=== PATIENT | female | born 1965 | race Caucasian/White ===

== ENCOUNTER → 2018-01-08 | Outpatient (CLI) | payer BC ==
[2013-12-25 18:45] VITALS: BP 129/65
--- NOTE | 2018-01-08 13:07 | RAD ---
DATE: 01/08/2018 EXAM: DIGITAL SCREEN BILAT W/CAD HISTORY: Routine screening COMPARISON: 05/23/2016 This study was interpreted with the benefit of Computerized Aided Detection (CAD). The breast parenchyma shows scattered fibroglandular densities. Breast parenchyma level B. FINDINGS: No new or enlarging breast densities are seen. Benign type calcification is present. No suspicious microcalcifications have developed. Benign-appearing lymph nodes are present in the axillary regions. IMPRESSION: Stable mammograms without evidence of malignancy. BI-RADS CATEGORY: 2 BENIGN FINDING(S) RECOMMENDED FOLLOW-UP: 12M 12 MONTH FOLLOW-UP PQRS compliance statement: Patient information was entered into a reminder system with a target due date for the next mammogram. Mammography is a sensitive method for finding small breast cancers, but it does not detect them all and is not a substitute for careful clinical examination. A negative mammogram does not negate a clinically suspicious finding and should not result in delay in biopsying a clinically suspicious abnormality. "Our facility is accredited by the [employer] Mammography Program."
== END | disposition home or self-care (01) ==
LOC: MAMMO 08:05
PROVIDERS: ATTEND Physician Assistant Surgical
DX: Z12.31 Encounter for screening mammogram for malignant neoplasm of breast (principal); E78.00 Pure hypercholesterolemia, unspecified
CPT/HCPCS: 77067

== ENCOUNTER → 2019-01-13 | Outpatient (CLI) | payer BC ==
[2013-12-25 18:45] VITALS: BP 129/65
--- NOTE | 2019-01-13 10:25 | CARD ---
MR#: [id number] Date of Study: 01/13/2019 Ordering Physician: NAVA VALENTINE, Referring Physician: NAVA VALENTINE, Tech: Modesta Kingflorian APPROVED REPORT EXAM: Two-dimensional and M-mode echocardiogram with Doppler and color Doppler. Other Information Quality : AverageHR: 52bpm Technically limited study due to body habitus. INDICATION Edema RISK FACTORS Hyperlipidemia Diabetes Previous smoking 2D DIMENSIONS RVDd3.3 (2.9-3.5cm)Left Atrium(2D)3.4 (1.6-4.0cm) IVSd1.0 (0.7-1.1cm)Aortic Root(2D)2.6 (2.0-3.7cm) LVDd4.7 (3.9-5.9cm)LVOT Diameter2.0 (1.8-2.4cm) PWd0.9 (0.7-1.1cm)LVDs3.2 (2.5-4.0cm) FS (%) 31.2 %SV59.0 ml LVEF(%)59.0 (>50%) M-Mode DIMENSIONS LVDd4.73 (4.0-5.6cm)FS (%) 46 % LVDs2.57 (2.0-3.8cm)LVEF(%)77 (>50%) Aortic Valve AoV Peak Rei.163.2cm/sAoV VTI37.2cm AO Peak GR.10.6mmHgLVOT Peak Rei.105.0cm/s LVOT VTI 28.44cmAO Mean GR.5mmHg MARK (VMAX)1.30nf5RIO (VTI)2.48cm2 Mitral Valve MV E Ftjsgvws815.5cm/sMV DECEL [id number] MV A Zylkpuso14.2cm/sMV LDV59bh E/A Ratio1.2MVA (PHT)3.98cm2 TDI E/Lateral E'10.9E/Medial E'13.1 Pulmonary Valve PV Peak Bluvzuej568.2cm/sPV Peak Grad.6mmHg Tricuspid Valve TR P. Kpenubui431ra/sRAP LSLWYTUD5etIr TR Peak Gr.96idNtOMLV37rgXz Pulmonary Vein S1 Olefsfkq96.4cm/sD2 Tekweitz07.3cm/s PVa maubgsyt671pupt LEFT VENTRICLE The left ventricle is normal size. There is borderline concentric left ventricular hypertrophy. The l eft ventricular systolic function is normal and the ejection fraction is within normal range. The Eje ction Fraction is 50-55%. There is normal LV segmental wall motion. The left ventricular diastolic fu nction and filling is normal for age. RIGHT VENTRICLE The right ventricle is normal size. There is normal right ventricular wall thickness. The right ventr icular systolic function is normal. ATRIA The left atrium size is normal. The right atrium size is normal. The interatrial septum is intact wit h no evidence for an atrial septal defect or patent foramen ovale as noted on 2-D or Doppler imaging. AORTIC VALVE The aortic valve is calcified but opens well. Doppler and Color Flow revealed no significant aortic r egurgitation. There is no significant aortic valvular stenosis. MITRAL VALVE The mitral valve is thickened but opens well. There is no evidence of mitral valve prolapse. There is no mitral valve stenosis. Doppler and Color-flow revealed trace mitral regurgitation. TRICUSPID VALVE The tricuspid valve is normal in structure and function. Doppler and Color Flow revealed trace tricus pid regurgitation with an estimated PAP of 31 mmHg. There is no tricuspid valve prolapse or vegetatio n. There is no tricuspid valve stenosis. PULMONIC VALVE The pulmonic valve is not well visualized. Doppler and Color Flow revealed trace pulmonic valvular re gurgitation. There is no pulmonic valvular stenosis. GREAT VESSELS The aortic root is normal in size. The IVC is normal in size and collapses >50% with inspiration. PERICARDIAL EFFUSION There is no evidence of significant pericardial effusion. Critical Notification Critical Value: No <Conclusion> The left ventricular systolic function is normal and the ejection fraction is within normal range. Th e Ejection Fraction is 50-55%. There is normal LV segmental wall motion. Signed by : Momo Ahumada, Electronically Approved : 01/13/2019 10:24:52
--- NOTE | 2019-01-13 10:36 | RAD ---
MR#: [id number] Date of Study: 01/13/2019 Ordering Physician: PUJA APPLE, Referring Physician: PUJA APPLE Tech: Josy Hunt RT R, [facility] T APPROVED REPORT Patient Location : OUT-PATIENT Indications Lower Extremity Edema : Greater Saphenous Veins (GSV) Significant venous relux noted in the RIGHT GSV at the following levels : Superficial Femoral Junctio n, Proximal Thigh, Mid Thigh Significant venous relux noted in the LEFT GSV at the following levels : Superficial Femoral Junction , Proximal Thigh, Mid Thigh Perforators Thigh Perforators Calf Perforators Right: cm up from medial heel 15cm back from the anterior border of tibia diameter 3.0mm. Findings Grayscale images of the right great saphenous vein and left great saphenous vein are grossly unremark able. The right great saphenous vein measures approximately 6 mm and the left great saphenous vein measures approximately 6 mm. There is a reflux on the right great saphenous vein measuring approximately 1.1 seconds in the proximal and midsegment. There is significant reflux in the left great saphenous vein up to 2.4 seconds in the proximal to mid segments. Bilateral lesser saphenous veins do not show any evidence of reflux. There is 1 calf perforators noted approximately 15 cm up from the ankle on the right side measuring 3 mm which does not have any clear evidence of reflux. Critical Notification Critical Value: No <Conclusion> 1. Positive for reflux in the bilateral greater saphenous veins. Signed by : Momo Ahumada, Electronically Approved : 01/13/2019 10:36:09
== END | disposition home or self-care (01) ==
LOC: ECHO 07:44
PROVIDERS: ATTEND Internal Medicine Cardiovascular Disease
DX: I35.1 Nonrheumatic aortic (valve) insufficiency (principal); I51.7 Cardiomegaly; R60.0 Localized edema
CPT/HCPCS: 93306; 93970

== ENCOUNTER → 2019-04-12 | Outpatient (CLI) | payer BC ==
[2013-12-25 18:45] VITALS: BP 129/65
--- NOTE | 2019-04-12 13:58 | KCIC ---
EXAM: Right lower extremity venous Doppler. HISTORY: Right lower extremity pain/swelling. COMPARISON: None. FINDINGS: Grayscale and Doppler analysis of the right lower extremity deep venous system was performed with graded compression and augmentation. The common femoral, greater saphenous, superficial femoral, popliteal and calf veins were assessed. There is no evidence of deep venous thrombosis. A popliteal cyst measures 7.8 x 3.3 x 1.8 cm. IMPRESSION: 1. No evidence of deep venous thrombosis. 2. Moderate popliteal cyst. Electronically signed by: Debora Rome MD (04/12/2019 1:55 PM) [place] [id number]
== END | disposition home or self-care (01) ==
LOC: KCIC US 13:09
PROVIDERS: ATTEND Family Medicine
DX: M71.21 Synovial cyst of popliteal space [Baker], right knee (principal); M79.89 Other specified soft tissue disorders; M79.604 Pain in right leg
CPT/HCPCS: 93971

== ENCOUNTER → 2019-06-15 | Outpatient (CLI) | payer BC ==
[2013-12-25 18:45] VITALS: BP 129/65
--- NOTE | 2019-06-17 06:45 | RAD ---
MR#: [id number] Date of Study: 06/15/2019 Ordering Physician: NAVA VALENTINE, Referring Physician: NAVA VALENTINE, Tech: LENNY Fischer, RDIL, T APPROVED REPORT Bilateral Lower Extremity Venous Study for DVT Patient Location: OUT-PATIENT Indications POST ABLATION Findings The bilateral lower extremity deep veins were evaluated for thrombus with color Doppler, spectral and grayscale images. On the right the grayscale images of the common femoral, superficial femoral and popliteal veins do n ot demonstrate any evidence of thrombus and these veins appear to be compressible. The below-knee vei ns were not well visualized but grossly appear to be compressible. Spectral imaging and color Doppler do not reveal any evidence of obstruction to flow with normal respirophasic variation above the knee . Below the knee there is spontaneous flow noted. On the left, the grayscale images of the common femoral, superficial femoral and popliteal veins do n ot demonstrate any evidence of thrombus and these veins appear to be compressible. The left superfici al femoral vein in the mid to distal segment was not well visualized. The below-knee veins again were not well visualized but grossly appear to be compressible. Spectral imaging and color Doppler do not reveal any evidence of obstruction to flow with normal respirophasic variation above the knee. The b elow-knee veins demonstrate spontaneous flow. The bilateral great saphenous veins are occluded with thrombus consistent with recent ablation. Critical Notification Critical Value: No <Conclusion> 1. No obvious deep vein thrombosis in the bilateral lower extremities. Technically difficult study. 2. Successful bilateral great saphenous vein ablations. Signed by : Momo Ahumada, Electronically Approved : 06/17/2019 06:44:45
== END | disposition home or self-care (01) ==
LOC: US 11:28
PROVIDERS: ATTEND Internal Medicine Cardiovascular Disease
DX: I82.813 Embolism and thrombosis of superficial veins of lower extremities, bilateral (principal)
CPT/HCPCS: 93970

== ENCOUNTER → 2020-05-07 | Outpatient (CLI) | payer BC ==
[2013-12-25 18:45] VITALS: BP 129/65
--- NOTE | 2020-05-09 11:38 | SLEEP ---
DATE OF STUDY: 05/07/2020 HOME SLEEP STUDY The patient is a 54-year-old who weighs 244 pounds with a BMI of 41.9. The patient's [place] score was 4. The patient underwent home sleep study performed at [facility]. Total recording time was 439 minutes. During the night of the study, the patient had 15 obstructive apneas, no central apneas, 22 mixed apneas and 65 hypopneas. The patient's AHI was 16.4 per hour. Nocturnal oximetry study revealed an average oxygen saturation of 93% with the lowest of 78%. 13 minutes were spent with oxygen saturation of less than 90%. Mean heart rate was 64 beats per minute. IMPRESSION: 1. Moderate obstructive sleep apnea at an AHI of 16.4 per hour. 2. Nocturnal hypoxia secondary to obstructive sleep apnea. RECOMMENDATIONS: 1. The patient would benefit from treatment of sleep apnea with CPAP. This can be done as in-lab CPAP titration versus home auto-titration study. 2. Once the patient is optimally treated, then follow up in 4-6 weeks to assess compliance and to document clinical improvement. 3. Weight loss is strongly advised. 4. Avoid T[employer] depressants. 5. Cautioned regarding driving until symptoms of sleep apnea resolve with above recommendation. TRINI PAUL MD DR: CAMILO/comfort JOB#: [id number] / [id number] RONDA Estevez MD
== END ==
LOC: RT 07:55
PROVIDERS: ATTEND Family Medicine
DX: G47.33 Obstructive sleep apnea (adult) (pediatric) (principal); R09.02 Hypoxemia
CPT/HCPCS: G0399

== ENCOUNTER → 2020-06-13 | Outpatient (CLI) | payer BC ==
[2013-12-25 18:45] VITALS: BP 129/65
--- NOTE | 2020-06-14 11:28 | SLEEP ---
DATE OF STUDY: 06/13/2020 SLEEP STUDY ATTENDING PHYSICIAN: Dr. Mirza. The patient 54 years old who weighs 244 pounds with a BMI of 42. The patient had a home sleep study and was found to have moderate ADDISON at an AHI of 16.4 per hour. The patient was referred for in-lab CPAP titration study. This was performed on 06/13/2020. During the night study, the patient spent 426 minutes in bed and slept for 345 minutes with a sleep efficiency of 81%. Sleep latency was 36 minutes with a REM latency of 153 minutes. Sleep architecture showed normal stage 1 sleep, increased stage 2 sleep, normal slow wave and reduced REM sleep. EKG monitoring revealed an average heart rate of 69 beats per minute. No sustained arrhythmias observed. No PLMs observed. The patient was started on CPAP at 5 cm water and titrated up to 9 cm water. At the final pressure, the patient slept for 99 minutes. The patient had supine as well as REM sleep. The patient's AHI was reduced to 2 per hour and oxygen saturation remained above 90%. IMPRESSION: 1. Moderate obstructive sleep apnea diagnosed by home sleep study. 2. No clinically significant periodic limb movements. RECOMMENDATIONS: 1. CPAP at 9 cm water completely eliminated the patient's sleep apnea and should be used on a nightly basis. 2. Follow up in 4-6 weeks to assess compliance with CPAP and to document clinical improvement. 3. Weight loss is advised. 4. Avoid BAKER TEST depressants. 5. Cautioned regarding driving until symptoms of sleep apnea resolve with the use of CPAP. TRINI PAUL MD DR: CAMILO/comfort JOB#: [id number] / [id number] RONDA Estevez MD
== END ==
LOC: SLPLAB 18:59
PROVIDERS: ATTEND Family Medicine
DX: G47.33 Obstructive sleep apnea (adult) (pediatric) (principal)
CPT/HCPCS: 95811

== ENCOUNTER → 2020-07-27 | Outpatient (CLI) | payer BC ==
[2013-12-25 18:45] VITALS: BP 129/65
--- NOTE | 2020-07-27 13:47 | CARD ---
MR#: [id number] Date of Study: 07/27/2020 Ordering Physician: NAVA VALENTINE, Referring Physician: NAVA VALENTINE Tech: Daisy Martins [facility] APPROVED REPORT EXAM: Two-dimensional and M-mode echocardiogram with Doppler and color Doppler. Other Information Quality : AverageHR: 61bpm Rhythm : NSR INDICATION Hypertension/HCVD RISK FACTORS Hypertension Obesity 2D DIMENSIONS RVDd3.9 (2.9-3.5cm)Left Atrium(2D)4.1 (1.6-4.0cm) IVSd1.0 (0.7-1.1cm)Aortic Root(2D)2.5 (2.0-3.7cm) LVDd4.9 (3.9-5.9cm)LVOT Diameter2.1 (1.8-2.4cm) PWd1.1 (0.7-1.1cm)LVDs2.8 (2.5-4.0cm) FS (%) 42.6 %SV84.3 ml LVEF(%)73.5 (>50%) Aortic Valve AoV Peak Rei.188.1cm/sAoV VTI49.3cm AO Peak GR.14.2mmHgLVOT Peak Rei.118.5cm/s AO Mean GR.6mmHgAVA (VMAX)2.12cm2 Mitral Valve MV E Yylfcmvu051.1cm/sMV DECEL GERY979yq MV A Hczoajio338.5cm/sE/A Ratio1.2 Pulmonary Valve PV Peak Ghobplks918.2cm/s Tricuspid Valve TR P. Qnttavsn151cr/sTR Peak Gr.30mmHg Pulmonary Vein S1 Qfwgsgsb52.7cm/sD2 Xawnaejz47.5cm/s PVa xbnaqdgs586pbdz LEFT VENTRICLE The left ventricle is normal size. There is normal left ventricular wall thickness. The left ventricu lar systolic function is normal and the ejection fraction is within normal range. Estimated ejection fraction 60-65%. There is normal LV segmental wall motion. The left ventricular diastolic function an d filling is normal for age. RIGHT VENTRICLE The right ventricle is normal size. There is normal right ventricular wall thickness. The right ventr icular systolic function is normal. ATRIA The left atrium size is normal. The right atrium size is normal. The interatrial septum is intact wit h no evidence for an atrial septal defect or patent foramen ovale as noted on 2-D or Doppler imaging. AORTIC VALVE The aortic valve is normal in structure and function. Doppler and Color Flow revealed no significant aortic regurgitation. There is no significant aortic valvular stenosis. MITRAL VALVE The mitral valve is normal in structure and function. There is no evidence of mitral valve prolapse. There is no mitral valve stenosis. Doppler and Color-flow revealed trace mitral regurgitation. TRICUSPID VALVE The tricuspid valve is normal in structure and function. Doppler and Color Flow revealed mild tricusp id regurgitation. Estimated PAP 40 mmHg. There is no tricuspid valve stenosis. PULMONIC VALVE Doppler and Color Flow revealed no pulmonic valvular regurgitation. There is no pulmonic valvular tu nosis. GREAT VESSELS The aortic root is normal in size. The ascending aorta is normal in size. The IVC is normal in size a nd collapses >50% with inspiration. PERICARDIAL EFFUSION There is no evidence of significant pericardial effusion. Critical Notification Critical Value: No <Conclusion> The left ventricular systolic function is normal and the ejection fraction is within normal range. E stimated ejection fraction 60-65%. There is normal LV segmental wall motion. Signed by : Momo Ahumada, Electronically Approved : 07/27/2020 13:47:30
== END ==
LOC: ECHO 08:43
PROVIDERS: ATTEND Internal Medicine Cardiovascular Disease
DX: I07.1 Rheumatic tricuspid insufficiency (principal); E78.5 Hyperlipidemia, unspecified
CPT/HCPCS: 93306

== ENCOUNTER → 2020-10-11 | Outpatient (CLI) | payer BC ==
[2013-12-25 18:45] VITALS: BP 129/65
--- NOTE | 2020-10-11 09:46 | RAD ---
EXAM: Pelvic sonogram. HISTORY: Postmenopausal bleeding. TECHNIQUE: Sonographic imaging of the pelvis was performed. COMPARISON: None. FINDINGS: The uterus measures 6.2 x 3.5 x 3.2 cm. The endometrial stripe measures 6 mm. The right ova ry is not seen. The left ovary is normal in size and demonstrates normal blood flow. IMPRESSION: 1. Mildly thickened endometrial stripe for the postmenopausal status the patient. 2. Obscured right ovary and unremarkable left ovary. Electronically signed by: Della Davenport MD (10/11/2020 9:43 AM) [id number]
--- NOTE | 2020-10-11 10:03 | RAD ---
EXAM: Bilateral digital screening mammogram with tomosynthesis. HISTORY: 54-year-old female presents for screening mammography. TECHNIQUE: Full-field digital craniocaudal and mediolateral oblique 2D and 3D tomosynthesis images of both breasts are obtained for evaluation. Computer aided detection was applied. COMPARISON: 01/13/2019 BREAST PARENCHYMAL DENSITY: Level B - Scattered fibroglandular densities. FINDINGS: There is no new suspicious mass, microcalcification or region of architectural distortion. There are stable areas of benign asymmetry and nodularity within both breasts. IMPRESSION: BI-RADS Category 2: Benign finding(s). RECOMMENDATION: Annual mammography is recommended. If your mammogram demonstrates that you have dense breast tissue, which could hide abnormalities, and if you have other risk factors for breast cancer that have been identified, you might benefit from s upplemental screening tests that may be suggested by your ordering physician. Dense breast tissue, i n and of itself, is a relatively common condition. This information is not provided to cause undue c oncern, but rather to raise your awareness and to promote discussion with your physician regarding th e presence of other risk factors, in addition to dense breast tissue. A report of your mammography re sults will be sent to you and your physician. You should contact your physician if you have any ques tions or concerns regarding this report. Mammography is a sensitive method for finding small breast cancers, but it does not detect them all a nd is not a substitute for careful clinical examination. A negative mammogram does not negate a clin ically suspicious finding and should not result in delay in biopsying a clinically suspicious abnorma lity. PQRS compliance statement - Patient information was entered into a reminder system with a target due date for the next mammogram. "Our facility is accredited by the [employer] Mammography Program." Electronically signed by: Della Davenport MD (10/11/2020 10:01 AM) [id number]
== END ==
LOC: US 08:44
PROVIDERS: ATTEND Family Medicine
DX: Z12.31 Encounter for screening mammogram for malignant neoplasm of breast (principal); N95.0 Postmenopausal bleeding
CPT/HCPCS: 76830; 76856; 77063; 77067